=== PATIENT | male | born 1975 | race Caucasian/White ===

== ENCOUNTER 2017-04-15 16:45 | Inpatient (IN) | payer BC ==
[~2017-04-15] VITALS: Ht 172.7 cm; Wt 100.0 kg
[2017-04-15 16:46] VITALS: BP 122/89; PULSE 143; RESP 20; TEMP 102.4; O2SAT 96
--- NOTE | 2017-04-15 17:19 | PD ---
Physical Exam Date Seen by Provider: Apr 15, 2017 Time Seen by Provider: 17:16 Narrative 42-year-old white male presents to emergency department with complaints of right lower quadrant pain 2 days. Patient has had a fever, chills, episodes of nausea but no vomiting. Is a decrease in appetite. States the pain is a 8-9 /10. No alleviating factors. Vital signs reviewed. Pt waiting for bed placement. Data Data Last Documented VS Vital Signs Date Time Temp Pulse Resp B/P (MAP) Pulse Ox O2 Delivery O2 Flow Rate FiO2 04/15/17 16:46 102.4 143 20 122/89 (100) 96 Room Air [facility] Medical Record Reviewed: No Supervised Visit with LARA: Milton Medina Apr 15, 2017 17:19
--- NOTE | 2017-04-15 17:19 | PD ---
Physical Exam Date Seen by Provider: Apr 15, 2017 Time Seen by Provider: 17:16 Narrative 42-year-old white male presents to emergency department with complaints of right lower quadrant pain 2 days. Patient has had a fever, chills, episodes of nausea but no vomiting. Is a decrease in appetite. States the pain is a 8-9 /10. No alleviating factors. Vital signs reviewed. Pt waiting for bed placement. Data Data Last Documented VS Vital Signs Date Time Temp Pulse Resp B/P (MAP) Pulse Ox O2 Delivery O2 Flow Rate FiO2 04/15/17 16:46 102.4 143 20 122/89 (100) 96 Room Air [facility] Medical Record Reviewed: No Supervised Visit with LARA: Milton Medina Apr 15, 2017 17:19
--- NOTE | 2017-04-15 17:19 | PD ---
Physical Exam Date Seen by Provider: Apr 15, 2017 Time Seen by Provider: 17:16 Narrative 42-year-old white male presents to emergency department with complaints of right lower quadrant pain 2 days. Patient has had a fever, chills, episodes of nausea but no vomiting. Is a decrease in appetite. States the pain is a 8-9 /10. No alleviating factors. Vital signs reviewed. Pt waiting for bed placement. Data Data Last Documented VS Vital Signs Date Time Temp Pulse Resp B/P (MAP) Pulse Ox O2 Delivery O2 Flow Rate FiO2 04/15/17 16:46 102.4 143 20 122/89 (100) 96 Room Air [facility] Medical Record Reviewed: No Supervised Visit with LARA: Milton Medina Apr 15, 2017 17:19
[2017-04-15] MEDS ORDERED: SODIUM CHLOR 0.9% 1000 ML INJ 1,000 ML IV ONE ×4 (17:30→19:00)
[2017-04-15] MEDS ORDERED: ONDANSETRON HCL 4 MG/2 ML VIAL IV PUSH ONE (17:30)
[2017-04-15 17:43] LABS: AUTOMATED NEUTROPHIL # 18.9 TH/MM3 (1.8-7.7); BASOPHIL % 0.2 % (0.0-2.0); HEMATOCRIT 47.2 % (39.0-51.0); LYMPH % 5.9 % (9.0-44.0); LYMPHOCYTE # 1.2 TH/MM3 (1.0-4.8); MEAN CELL VOLUME 96.9 FL (80.0-100.0); MEAN CORPUSCULAR HEMOGLOBIN 32.9 PG (27.0-34.0); MEAN CORPUSCULAR HGB CONC 33.9 % (32.0-36.0); MEAN PLATELET VOLUME 9.3 FL (7.0-11.0); MONO % 4.4 % (0.0-8.0); MONOCYTE # 0.9 TH/MM3 (0-0.9); NEUT % 89.5 % (16.0-70.0); PLATELET COUNT 265 TH/MM3 (150-450); RED BLOOD COUNT 4.87 MIL/MM3 (4.50-5.90); RED CELL DISTRIBUTION WIDTH 13.2 % (11.6-17.2); WHITE BLOOD COUNT 21.1 TH/MM3 (4.0-11.0)
[2017-04-15 17:51] LABS: BACTERIA, URINE RARE /hpf; BILIRUBIN, URINE NEG (NEG); BLOOD, URINE SMALL (NEG); GLUCOSE,URINE TRACE mg/dL (NEG); HYALINE CAST, URINE 71 /lpf (RARE); KETONE, URINE TRACE mg/dL (NEG); MUCUS URINE MANY /lpf (OCC); NITRITE,URINE NEG (NEG); URINE COLOR YELLOW (YELLW/STRAW); URINE LEUKOCYTE ESTERASE NEG (NEG)
[2017-04-15 17:53] LABS: INTERNATIONAL NORMALIZED RATIO 1.2 RATIO; PROTHROMBIN TIME - PATIENT 13.9 SEC (9.8-11.6)
[2017-04-15] MEDS ORDERED: MORPHINE SULFATE 4 MG/ML INJ IV PUSH ONE (18:00)
[2017-04-15 18:10] LABS: ALBUMIN 3.8 GM/DL (3.4-5.0); AST (GOT) 17 U/L (15-37); BICARBONATE 25.1 MEQ/L (21.0-32.0); BLOOD UREA NITROGEN 15 MG/DL (7-18); CALCIUM 9.4 MG/DL (8.5-10.1); CHLORIDE 95 MEQ/L (98-107); CREATININE 1.87 MG/DL (0.60-1.30); GLOMERULAR FILTRATION RATE 40 ML/MIN (>89); GLUCOSE,RANDOM 160 MG/DL (74-106); SODIUM (NA) 130 MEQ/L (136-145)
[2017-04-15 18:11] LABS: ALT (GPT) 32 U/L (12-78)
[2017-04-15 18:13] LABS: ALKALINE PHOSPHATASE 56 U/L (45-117); TOTAL BILIRUBIN ADULT 1.8 MG/DL (0.2-1.0); TOTAL PROTEIN 8.4 GM/DL (6.4-8.2)
[2017-04-15] MEDS ORDERED: ACETAMINOPHEN 1000 MG/100 ML 100 ML IV ONE (18:15)
[2017-04-15] MEDS ORDERED: PIPERACIL-TAZO 3.375 GM PREMIX 50 ML IV ONE (18:15)
--- NOTE | 2017-04-15 18:25 | PD ---
HPI Chief Complaint: Abdominal Pain Time Seen by Provider: 17:29 Travel History International Travel<30 days: No Contact w/Intl Traveler<30days: No Traveled to known affect area: No History of Present Illness HPI 42-year-old man presents to the emergency department complaining of right lower quadrant abdominal pain associated with fevers, nausea, feeling poorly. Symptoms have been ongoing for the past 2 days or so. No history of previous similar symptoms. He had a hernia when he was a baby but has not had any recurrent symptoms. Decreased appetite. Some right lower quadrant tenderness. No other complaints. History Past Medical History Medical History: Denies Significant Hx Social History Tobacco Use: No Allergies-Medications (Allergen,Severity, Reaction): Coded Allergies: No Known Allergies (Unverified , 04/15/17) Review of Systems Except as stated in HPI: all other systems reviewed are Neg Physical Exam Narrative GENERAL: 42-year-old man, no acute distress. SKIN: Focused skin assessment warm/dry. NECK: Trachea midline. No JVD. CARDIOVASCULAR: Regular rate and rhythm. No murmur appreciated. RESPIRATORY: No accessory muscle use. Clear to auscultation. Breath sounds equal bilaterally. GASTROINTESTINAL: Abdomen is obese and soft. Moderate right lower quadrant tenderness with some voluntary guarding. MUSCULOSKELETAL: No obvious deformities. No clubbing. No cyanosis. No edema. NEUROLOGICAL: Awake and alert. No obvious cranial nerve deficits. Motor grossly within normal limits. Normal speech. PSYCHIATRIC: Appropriate mood and affect; insight and judgment normal. Data Data Last Documented VS Vital Signs Date Time Temp Pulse Resp B/P (MAP) Pulse Ox O2 Delivery O2 Flow Rate FiO2 04/15/17 18:55 18 04/15/17 16:46 102.4 143 122/89 (100) 96 Room Air Orders Orders Complete Blood Count With Diff (04/15/17 17:19) Comprehensive Metabolic Panel (04/15/17 17:19) Prothrombin Time / Inr (Pt) (04/15/17 17:19) Act Partial Throm Time (Ptt) (04/15/17 17:19) Ua Includes Microscopic (04/15/17 17:19) Iv Access Insert/Monitor (04/15/17 17:19) Ct Abd/Pel W Iv Contrast(Rout) (04/15/17 17:19) Sodium Chlor 0.9% 1000 Ml Inj (Ns 1000 M (04/15/17 17:30) Ondansetron Inj (Zofran Inj) (04/15/17 17:30) Morphine Inj (Morphine Inj) (04/15/17 18:00) Piperacil-Tazo 3.375 Gm Premix (Zosyn 3. (04/15/17 18:15) Sodium Chlor 0.9% 1000 Ml Inj (Ns 1000 M (04/15/17 18:15) Acetaminophen 1000 Mg/100 Ml (Ofirmev 10 (04/15/17 18:15) Sodium Chlor 0.9% 1000 Ml Inj (Ns 1000 M (04/15/17 18:30) Iodixanol 320 Inj (Rad Ct) (Visipaque 32 (04/15/17 18:29) Sodium Chlor 0.9% 1000 Ml Inj (Ns 1000 M (04/15/17 19:00) Admit Order (Ed Use Only) (04/15/17 ) Labs Laboratory Tests Test 04/15/17 17:24 04/15/17 17:25 Urine Color YELLOW Urine Turbidity HAZY Urine pH 6.0 Urine Specific [place] 1.024 Urine Protein 100 mg/dL Urine Glucose (UA) TRACE mg/dL Urine Ketones TRACE mg/dL Urine Occult Blood SMALL Urine Nitrite NEG Urine Bilirubin NEG Urine Urobilinogen 2.0 MG/DL Urine Leukocyte Esterase NEG Urine RBC 2 /hpf Urine WBC 6 /hpf Urine Bacteria RARE /hpf Urine Hyaline Casts 71 /lpf Urine Mucus MANY /lpf White Blood Count 21.1 TH/MM3 Red Blood Count 4.87 MIL/MM3 Hemoglobin 16.0 GM/DL Hematocrit 47.2 % Mean Corpuscular Volume 96.9 FL Mean Corpuscular Hemoglobin 32.9 PG Mean Corpuscular Hemoglobin Concent 33.9 % Red Cell Distribution Width 13.2 % Platelet Count 265 TH/MM3 Mean Platelet Volume 9.3 FL Neutrophils (%) (Auto) 89.5 % Lymphocytes (%) (Auto) 5.9 % Monocytes (%) (Auto) 4.4 % Eosinophils (%) (Auto) 0.0 % Basophils (%) (Auto) 0.2 % Neutrophils # (Auto) 18.9 TH/MM3 Lymphocytes # (Auto) 1.2 TH/MM3 Monocytes # (Auto) 0.9 TH/MM3 Eosinophils # (Auto) 0.0 TH/MM3 Basophils # (Auto) 0.0 TH/MM3 CBC Comment DIFF FINAL Differential Comment Prothrombin Time 13.9 SEC Prothromb Time International Ratio 1.2 RATIO Activated Partial Thromboplast Time 29.4 SEC Blood Urea Nitrogen 15 MG/DL Creatinine 1.87 MG/DL Random Glucose 160 MG/DL Total Protein 8.4 GM/DL Albumin 3.8 GM/DL Calcium Level 9.4 MG/DL Alkaline Phosphatase 56 U/L Aspartate Amino Transf (AST/SGOT) 17 U/L Alanine Aminotransferase (ALT/SGPT) 32 U/L Total Bilirubin 1.8 MG/DL Sodium Level 130 MEQ/L Potassium Level 4.0 MEQ/L Chloride Level 95 MEQ/L Carbon Dioxide Level 25.1 MEQ/L Anion Gap 10 MEQ/L Estimat Glomerular Filtration Rate 40 ML/MIN [facility] Medical Decision Making Medical Screen Exam Complete: Yes Emergency Medical Condition: Yes Interpretation(s) LABS: CBC remarkable for white count 21,000 CMP remarkable for mildly elevated creatinine, 1.7, total bili 1.8 INR 1.2 UA with trace pyuria Differential Diagnosis Sepsis, appendicitis, perforated appendicitis, terminal ileitis, colitis, hepatobiliary disease, renal lithiasis, UTI, other Narrative Course medical decision making INITIAL: This is a 42-year-old man who presents to the emergency department complaining of right lower quadrant abdominal pain associated with fever and tenderness suggestive of acute appendicitis. Patient is tachycardic with high fever suggestive of sepsis. We'll give IV fluids, antiemetics, pain medicine, empiric IV antibiotics. We'll check labs, CT. Creatinine told that one creatinine told elevated. I think the risks of IV contrast for patient with sepsis and likely abdominal etiology outweighs risk of renal injury in this patient. Aggressive IV hydration is ordered as well. FINAL: Perforated appendicitis. Spoke with Dr. Diaz, will take patient to the OR. Diagnosis Primary Impression: Perforated appendicitis Additional Impression: Sepsis Admitting Information Admitting Physician Requests: Admit Boby Cantu MD Apr 15, 2017 18:25
[2017-04-15] MEDS ORDERED: IODIXANOL 320 MG/ML 10 ML VIAL (for Rad CT) IVCONTRAST ONE (18:29)
--- NOTE | 2017-04-15 18:48 | RADRPT ---
EXAM DATE/TIME: 04/15/2017 18:19 [place] COMPARISON: No previous studies available for comparison. INDICATIONS : Right lower quadrant pain, fever, nausea. IV CONTRAST: 50 cc Visipaque (iodixanol) IV ORAL CONTRAST: No oral contrast ingested. RADIATION DOSE: 16.32 CTDIvol (mGy) MEDICAL HISTORY : None SURGICAL HISTORY : None. ENCOUNTER: Initial ACUITY: 2 days PAIN SCALE: 8/10 LOCATION: Right lower quadrant TECHNIQUE: Volumetric scanning of the abdomen and pelvis was performed. Using automated exposure control and ad justment of the mA and/or kV according to patient size, radiation dose was kept as low as reasonably achievable to obtain optimal diagnostic quality images. DICOM format image data is available electro nically for review and comparison. FINDINGS: LOWER LUNGS: The visualized lower lungs are clear. LIVER: Homogeneous density without lesion. There is no dilation of the biliary tree. No calcified gallston es. SPLEEN: Normal size without lesion. PANCREAS: Within normal limits. KIDNEYS: Normal in size and shape. There is no mass, stone or hydronephrosis. ADRENAL GLANDS: Within normal limits. VASCULAR: There is no aortic aneurysm. BOWEL/MESENTERY: There is evidence of a ruptured appendicitis with abnormal tubular structure in the right lower quadr ant with surrounding inflammatory change. There is a small appendicolith in the base near the cecum b est seen on axial image #71. There is surrounding inflammatory change in the mesentery with several s mall collections of free air. There is a small amount of fluid in the pelvis. There is an abnormal yessica wel gas pattern with multiple loops of borderline dilated air-containing small bowel with air-fluid l evels in the central and left side of the abdomen. Air-fluid levels and mild gaseous dilatation are a lso present in portions of the colon. ABDOMINAL WALL: Within normal limits. RETROPERITONEUM: There is no lymphadenopathy. BLADDER: No wall thickening or mass. REPRODUCTIVE: Within normal limits. INGUINAL: There is no lymphadenopathy or hernia. MUSCULOSKELETAL: Within normal limits for patient age. CONCLUSION: 1. Ruptured appendicitis with small amount of free air and fluid. 2. Abnormal bowel gas pattern likely representing an ileus. Matt Vuong MD on April 15, 2017 at 18:43 Board Certified Radiologist. This report was verified electronically.
[2017-04-15 19:38] VITALS: BP 129/75; PULSE 115; RESP 16; TEMP 102.9; O2SAT 94
[2017-04-15] MEDS ORDERED: ACETAMINOPHEN 1000 MG/100 ML 0 ML IV ONE (19:52)
[2017-04-15] MEDS ORDERED: BUPIVACAINE/EPINEPHRINE 0.5% 50 ML VIAL ONE (19:59)
[2017-04-15] MEDS ORDERED: metroNIDAZOLE 500 MG INJ 100 ML IV ONE (20:32)
[2017-04-15] MEDS ORDERED: diphenhydrAMINE HCL 50 MG/ML VIAL IVP PRN (21:30)
[2017-04-15] MEDS ORDERED: Post-op Orders (for Pharmacy) MISC XX ONE (21:30)
[2017-04-15] MEDS ORDERED: ONDANSETRON HCL 4 MG/2 ML VIAL IV PUSH PRN (21:30)
[2017-04-15] MEDS ORDERED: NALOXONE HCL 0.4 MG/ML AMP IV PUSH PRN (21:30)
[2017-04-15] MEDS ORDERED: ACETAMINOPHEN 1000 MG/100 ML 100 ML IV SCH (21:30)
[2017-04-15] MEDS ORDERED: DO NOT ADM ANY ANTICOAGULANT DRUGS PRN (21:30)
[2017-04-15] MEDS ORDERED: SODIUM CHLORIDE 0.9% FLUSH 5 ML FLUSH IVF PRN (21:30)
[2017-04-15] MEDS ORDERED: MORPHINE SULFATE 4 MG/ML INJ IV PUSH PRN (21:30)
[2017-04-15] MEDS ORDERED: MORPHINE SULFATE 8 MG/ML INJ IV PUSH PRN (21:30)
[2017-04-15] MEDS ORDERED: PCA - TOTAL MG MORPHINE DELIVERED PER SHIFT SCH (22:00)
[2017-04-15] MEDS: LACTATED RINGER'S 1000 ML INJ 1,000 ML IV SCH (22:00)
[2017-04-15] MEDS ORDERED: LACTATED RINGER'S 1000 ML INJ 1,000 ML IV SCH ×2 (22:05→23:00)
[2017-04-15] MEDS: CIPROFLOXACIN 400 MG PREMIX 200 ML IV SCH (22:10)
[2017-04-15 23:51] VITALS: BP 120/64; PULSE 102; RESP 17; TEMP 98.6; O2SAT 93
--- NOTE | 2017-04-15 23:59 | MH ---
cc: MARCO ANTONIO DIAZ M.D. DATE OF ADMISSION: 04/15/2017 REASON FOR ADMISSION Perforated appendicitis HISTORY OF PRESENT ILLNESS The patient is a 42 year-old male who has been hurting since Friday and has right lower quadrant pain with fevers and a high fever to 104 this morning. The patient has not had no similar symptoms previously. He denies vomiting. Last bowel movement was today. ALLERGIES: He has no known allergies. REVIEW OF SYSTEMS: Review of systems are negative except as indicated above. PHYSICAL EXAMINATION: The physical exam reveals an ill-appearing male who is quite uncomfortable. Vital signs: BP 129/75, pulse 115, respirations 16, temperature 102.9, 94% saturation on room air. HEENT: Sclerae anicteric. Chest: Clear to auscultation. Cardiac exam: Reveals tachycardia without murmurs. Abdomen is soft but diffusely tender. Pulses are present. Neurologic: Exam is nonfocal. LABORATORY VALUES: Laboratory values demonstrate WBC of 21.1 with 89% neutrophils. BUN and creatinine are 15 and 1.87, glucose is 160. IMAGING STUDIES: Imaging demonstrates evidence of ruptured appendicitis with an abnormal tubular structure in the right lower quadrant with surrounding free air and fluid. There is an abnormal bowel gas pattern likely representing an ileus. ASSESSMENT Perforated appendicitis with free air and fluid. PLAN The patient has been given fluid bolus by Dr. Cantu and has received antibiotics. He will be taken to the operating room immediately. Discussed risks of surgery with the patient and his including but not limited to bleeding, high risk of infection with abscess formation requiring drainage, even with drains placed intraoperatively, adhesion formation, and high risk of ileus with prolonged hospitalization. I have also discussed increased risk of leakage with fistula formation as well as the possibility of the patient requiring bowel resection of the ileocecal area. I have discussed remedies, consequences, alternatives, and convalescence; they vocalized understand and agree to proceed. Marco Antonio Diaz MD [facility]/ABELARDO /11:28 PM /11:51 PM
--- NOTE | 2017-04-16 00:25 | MP ---
cc: MARCO ANTONIO IDAZ M.D. DATE OF SURGERY: 04/15/2017 PROCEDURE Laparoscopic appendectomy. Primary repair of umbilical hernia. PREOPERATIVE DIAGNOSIS Perforated appendicitis POSTOPERATIVE DIAGNOSIS Perforated appendicitis Incarcerated umbilical hernia. ANESTHESIA: General endotracheal anesthesia SURGEON Lanie Diaz MD. ESTIMATED BLOOD LOSS: 20 mL FLUIDS: 1200 mL Crystalloid COMPLICATIONS None. DRAINS: MILANA x1 SPECIMEN Appendix to pathology. FINDINGS Perforated appendicitis, preperitoneal fat in an umbilical hernia. PROCEDURE IN DETAIL The patient was taken to the operating room and placed on the operating table in the supine position. After an adequate level of general endotracheal anesthesia was achieved the abdomen was prepped and draped in usual fashion. Time-out was taken confirming the correct patient, site, and procedure to be performed. Skin and subcutaneous tissue was infiltrated with local anesthetic. An incision made in the umbilicus and carried through the fascia sharply. The preperitoneal fat comprising the hernia was reduced into the abdominal cavity. A 12 mm balloon trocar was inserted and the balloon inflated. The abdomen was insufflated. A 5 mm 30 degrees laparoscope was inserted. The patient was found to have purulent material in the abdomen and inflammatory process around multiple loops of small bowel. A 5-mm trocar was placed in the right lower quadrant and entered the abdominal cavity under direct vision uneventfully. Instrument was used to sweep loops of bowel down off of the anterior abdominal wall and an infraumbilical midline trocar was able to be placed under direct vision uneventfully as well. Following this loops of bowel were freed up and suction and irrigation was used to remove purulent material from the abdominal cavity and the pelvis. When this had been completed the appendix was identified and a perforation was seen about three-quarters of the way toward the base of the appendix. The mesoappendix was then divided and a 0-PDS Endoloop slipped around the appendix and placed at the base proximal to the perforation site. The appendix was then divided approximately 1 cm distal to the loop and this specimen placed into an EndoCatch device. While observing via the right lower quadrant trocar site, the appendix was removed via the umbilical port and passed off the table. The abdomen then was copiously irrigated and a 10-Tamazight Daniel drain was brought out via the right lower quadrant trocar site. The drain was placed into the pelvis and with the more proximal part of the drain near the appendiceal stump. The appendiceal stump and mesoappendix were reexamined and found to be clean and dry. After aspirating as much irrigation as possible the drain was fixed to the skin with a 3-0 nylon suture. Insufflation was discontinued and the umbilical port was removed. The fascia was closed in the umbilicus with 0 Vicryl suture in an interrupted fashion. Care was taken to close the hernia defect. The remaining local anesthetic was injected into the trocar sites and the skin closed at the infraumbilical trocar site and the umbilicus with 4-0 Vicryl in an interrupted buried fashion. Both of these sites were dressed with Steri-Strips and a 4x4 applied around the drain. The patient was extubated and taken back to the recovery room in stable condition. He tolerated the procedure well. MD KEON Llanes/ABELARDO /11:32 PM /12:17 AM
[2017-04-16] MEDS: ACETAMINOPHEN 1000 MG/100 ML 100 ML IV SCH ×4 (00:28→18:16)
[2017-04-16] MEDS: LACTATED RINGER'S 1000 ML INJ 1,000 ML IV SCH ×3 (03:42→13:56)
[2017-04-16] MEDS: metroNIDAZOLE 500 MG INJ 100 ML IV SCH ×4 (03:42→21:09)
[2017-04-16 04:30] VITALS: BP 107/66; PULSE 77; RESP 18; TEMP 96.5; O2SAT 96
[2017-04-16 08:00] VITALS: BP 114/70; PULSE 84; RESP 20; TEMP 97.8; O2SAT 97
[2017-04-16 08:18] LABS: AUTOMATED NEUTROPHIL # 10.3 TH/MM3 (1.8-7.7); BASOPHIL % 0.1 % (0.0-2.0); HEMOGLOBIN 13.2 GM/DL (13.0-17.0); LYMPH % 7.7 % (9.0-44.0); LYMPHOCYTE # 0.9 TH/MM3 (1.0-4.8); MEAN CELL VOLUME 98.6 FL (80.0-100.0); MEAN CORPUSCULAR HEMOGLOBIN 33.4 PG (27.0-34.0); MEAN CORPUSCULAR HGB CONC 33.9 % (32.0-36.0); MEAN PLATELET VOLUME 9.7 FL (7.0-11.0); MONO % 5.4 % (0.0-8.0); MONOCYTE # 0.6 TH/MM3 (0-0.9); NEUT % 86.8 % (16.0-70.0); PLATELET COUNT 155 TH/MM3 (150-450); RED BLOOD COUNT 3.96 MIL/MM3 (4.50-5.90); RED CELL DISTRIBUTION WIDTH 13.1 % (11.6-17.2); WHITE BLOOD COUNT 11.9 TH/MM3 (4.0-11.0)
[2017-04-16 08:24] VITALS: O2SAT 92
[2017-04-16 08:51] LABS: CALCIUM 8.3 MG/DL (8.5-10.1); CREATININE 1.16 MG/DL (0.60-1.30)
[2017-04-16] MEDS: SODIUM CHLORIDE 0.9% FLUSH 5 ML FLUSH IVF SCH ×2 (09:00→21:00)
[2017-04-16] MEDS: CIPROFLOXACIN 400 MG PREMIX 200 ML IV SCH ×2 (09:06→21:09)
--- NOTE | 2017-04-16 11:55 | HHI.PR ---
Subjective Subjective Notes Up to chair Complains of just mild pain at incisions site PATTIE Peck at bedside Objective Vitals/I&O Vital Signs Date Time Temp Pulse Resp B/P (MAP) Pulse Ox O2 Delivery O2 Flow Rate FiO2 04/16/17 08:24 92 21 04/16/17 08:00 97.8 84 20 114/70 (85) 04/15/17 22:30 Nasal Cannula 3 Labs Laboratory Tests Test 04/15/17 17:24 04/15/17 17:25 04/16/17 07:41 Urine Color YELLOW Urine Turbidity HAZY Urine pH 6.0 Urine Specific [place] 1.024 Urine Protein 100 Urine Glucose (UA) TRACE Urine Ketones TRACE Urine Occult Blood SMALL Urine Nitrite NEG Urine Bilirubin NEG Urine Urobilinogen 2.0 Urine Leukocyte Esterase NEG Urine RBC 2 Urine WBC 6 Urine Bacteria RARE Urine Hyaline Casts 71 Urine Mucus MANY White Blood Count 21.1 11.9 Red Blood Count 4.87 3.96 Hemoglobin 16.0 13.2 Hematocrit 47.2 39.0 Mean Corpuscular Volume 96.9 98.6 Mean Corpuscular Hemoglobin 32.9 33.4 Mean Corpuscular Hemoglobin Concent 33.9 33.9 Red Cell Distribution Width 13.2 13.1 Platelet Count 265 155 Mean Platelet Volume 9.3 9.7 Neutrophils (%) (Auto) 89.5 86.8 Lymphocytes (%) (Auto) 5.9 7.7 Monocytes (%) (Auto) 4.4 5.4 Eosinophils (%) (Auto) 0.0 0.0 Basophils (%) (Auto) 0.2 0.1 Neutrophils # (Auto) 18.9 10.3 Lymphocytes # (Auto) 1.2 0.9 Monocytes # (Auto) 0.9 0.6 Eosinophils # (Auto) 0.0 0.0 Basophils # (Auto) 0.0 0.0 CBC Comment DIFF FINAL DIFF FINAL Differential Comment Prothrombin Time 13.9 Prothromb Time International Ratio 1.2 Activated Partial Thromboplast Time 29.4 Blood Urea Nitrogen 15 14 Creatinine 1.87 1.16 Random Glucose 160 133 Total Protein 8.4 Albumin 3.8 Calcium Level 9.4 8.3 Alkaline Phosphatase 56 Aspartate Amino Transf (AST/SGOT) 17 Alanine Aminotransferase (ALT/SGPT) 32 Total Bilirubin 1.8 Sodium Level 130 138 Potassium Level 4.0 4.4 Chloride Level 95 104 Carbon Dioxide Level 25.1 26.0 Anion Gap 10 8 Estimat Glomerular Filtration Rate 40 69 Cardiovascular: Regular Lungs: Clear Abdomen: Other (distended; lap sites c/d/i; MILANA with thick with minimal pus ) Extremities: No edema A/P Assessment and Plan 42 year old male POD1 lap appy; perforated -Continue IVF -Continue IV antibiotics -Okay for ice chips -Patient at high risk for post op ileus -OOB and mobilize as tolerated -Pain control Attending Note - Dr. Diaz Feels better Steristrips dry MILANA output cloudy The exam, history, and the medical decision-making described in the above note were completed with the assistance of the mid-level provider. I reviewed and agree with the findings presented. I attest that I had a [id number] encounter with the patient on the same day, and personally performed and documented my assessment and findings in the medical record. Chula Sloan Apr 16, 2017 11:55 Matt Diaz MD Apr 17, 2017 21:39
[2017-04-16 12:00] VITALS: BP 105/65; PULSE 86; RESP 20; TEMP 97.9; O2SAT 96
[2017-04-16] MEDS: PANTOPRAZOLE SODIUM 40 MG VIAL IV PUSH SCH (14:56)
[2017-04-16 16:00] VITALS: BP 104/67; PULSE 79; RESP 20; TEMP 96.9; O2SAT 96
[2017-04-16 20:23] VITALS: BP 122/66; PULSE 80; RESP 18; TEMP 99.2; O2SAT 96
[2017-04-16] MEDS: ENOXAPARIN SODIUM 40 MG/0.4 ML SYRINGE SQ SCH (21:09)
[2017-04-17] VITALS (8 sets, daily range): BP systolic 116–141; BP diastolic 72–88; PULSE 88–103; RESP 16–20; TEMP 98.4–99.9; O2SAT 93–99
[2017-04-17] MEDS: LACTATED RINGER'S 1000 ML INJ 1,000 ML IV SCH ×4 (00:09→18:55)
[2017-04-17] MEDS: metroNIDAZOLE 500 MG INJ 100 ML IV SCH ×4 (04:00→22:28)
[2017-04-17] MEDS: ACETAMINOPHEN 1000 MG/100 ML 100 ML IV SCH ×5 (06:00→17:05)
[2017-04-17 08:05] LABS: AUTOMATED NEUTROPHIL # 10.3 TH/MM3 (1.8-7.7); BASOPHIL % 0.1 % (0.0-2.0); EOSINOPHIL % 0.3 % (0.0-4.0); HEMATOCRIT 38.9 % (39.0-51.0); HEMOGLOBIN 13.2 GM/DL (13.0-17.0); LYMPH % 6.8 % (9.0-44.0); LYMPHOCYTE # 0.8 TH/MM3 (1.0-4.8); MEAN CELL VOLUME 97.7 FL (80.0-100.0); MEAN CORPUSCULAR HEMOGLOBIN 33.1 PG (27.0-34.0); MEAN CORPUSCULAR HGB CONC 33.9 % (32.0-36.0); MEAN PLATELET VOLUME 9.6 FL (7.0-11.0); MONO % 4.6 % (0.0-8.0); MONOCYTE # 0.5 TH/MM3 (0-0.9); NEUT % 88.2 % (16.0-70.0); PLATELET COUNT 177 TH/MM3 (150-450); RED BLOOD COUNT 3.98 MIL/MM3 (4.50-5.90); WHITE BLOOD COUNT 11.7 TH/MM3 (4.0-11.0)
[2017-04-17 08:39] LABS: BICARBONATE 25.2 MEQ/L (21.0-32.0); CALCIUM 8.3 MG/DL (8.5-10.1); CREATININE 0.93 MG/DL (0.60-1.30)
[2017-04-17] MEDS: CIPROFLOXACIN 400 MG PREMIX 200 ML IV SCH ×2 (09:31→22:28)
[2017-04-17] MEDS: SODIUM CHLORIDE 0.9% FLUSH 5 ML FLUSH IVF SCH ×2 (09:31→21:00)
--- NOTE | 2017-04-17 13:17 | HHI.PR ---
Subjective Subjective Notes Resting in bed Feeling slightly bloated today Just sipping on water Objective Vitals/I&O Vital Signs Date Time Temp Pulse Resp B/P (MAP) Pulse Ox O2 Delivery O2 Flow Rate FiO2 04/17/17 11:58 98.4 96 16 129/79 (96) 97 04/16/17 08:24 21 04/15/17 22:30 Nasal Cannula 3 Labs Laboratory Tests Test 04/17/17 07:17 White Blood Count 11.7 Red Blood Count 3.98 Hemoglobin 13.2 Hematocrit 38.9 Mean Corpuscular Volume 97.7 Mean Corpuscular Hemoglobin 33.1 Mean Corpuscular Hemoglobin Concent 33.9 Red Cell Distribution Width 13.0 Platelet Count 177 Mean Platelet Volume 9.6 Neutrophils (%) (Auto) 88.2 Lymphocytes (%) (Auto) 6.8 Monocytes (%) (Auto) 4.6 Eosinophils (%) (Auto) 0.3 Basophils (%) (Auto) 0.1 Neutrophils # (Auto) 10.3 Lymphocytes # (Auto) 0.8 Monocytes # (Auto) 0.5 Eosinophils # (Auto) 0.0 Basophils # (Auto) 0.0 CBC Comment DIFF FINAL Differential Comment Blood Urea Nitrogen 15 Creatinine 0.93 Random Glucose 96 Calcium Level 8.3 Sodium Level 138 Potassium Level 3.8 Chloride Level 102 Carbon Dioxide Level 25.2 Anion Gap 11 Estimat Glomerular Filtration Rate 89 Cardiovascular: Regular Lungs: Clear Abdomen: Other (lap sites c/d/i; abdomen moderately distended; MILANA with thick pus drainage ) Extremities: No edema A/P Assessment and Plan 42 year old male POD2 lap appy; perforated -Continue IVF -Continue IV antibiotics -Okay for clear liquids although I did just encourage sips at this point -Patient at high risk for post op ileus -OOB and mobilize as tolerated -Pain control Attending Note - Dr. Diaz Slightly bloated still MILANA output serosanguinous, still slightly cloudy Clear liquids Continue IV antibiotics At risk for ileus. The exam, history, and the medical decision-making described in the above note were completed with the assistance of the mid-level provider. I reviewed and agree with the findings presented. I attest that I had a [id number] encounter with the patient on the same day, and personally performed and documented my assessment and findings in the medical record. Chula Sloan Apr 17, 2017 13:17 Matt Diaz MD Apr 17, 2017 21:38
--- NOTE | 2017-04-17 16:43 | HHI.FF ---
Face to Face Verification Diagnosis: (1) Perforated appendicitis Home Health Nursing Order: Wound care and dressing changes Instructions: Routine MILANA care I have seen patient Dino Dougherty on 04/17/17. My clinical findings support the need for the requested home health care services because: Ltd mobility - disease progression I certify that my clinical findings support that this patient is homebound because: Post-op weakness Chula Sloan [facility] Apr 17, 2017 16:43
--- NOTE | 2017-04-17 16:43 | HHI.FF ---
Face to Face Verification Diagnosis: (1) Perforated appendicitis Home Health Nursing Order: Wound care and dressing changes Instructions: Routine MILANA care I have seen patient Dino Dougherty on 04/17/17. My clinical findings support the need for the requested home health care services because: Ltd mobility - disease progression I certify that my clinical findings support that this patient is homebound because: Post-op weakness Chula Sloan [facility] Apr 17, 2017 16:43
--- NOTE | 2017-04-17 16:43 | HHI.FF ---
Face to Face Verification Diagnosis: (1) Perforated appendicitis Home Health Nursing Order: Wound care and dressing changes Instructions: Routine MILANA care I have seen patient Dino Dougherty on 04/17/17. My clinical findings support the need for the requested home health care services because: Ltd mobility - disease progression I certify that my clinical findings support that this patient is homebound because: Post-op weakness Chula Sloan [facility] Apr 17, 2017 16:43
[2017-04-17] MEDS: PANTOPRAZOLE SODIUM 40 MG VIAL IV PUSH SCH (17:04)
[2017-04-17] MEDS: ENOXAPARIN SODIUM 40 MG/0.4 ML SYRINGE SQ SCH (22:29)
[2017-04-18] MEDS: ACETAMINOPHEN 1000 MG/100 ML 100 ML IV SCH (03:48)
[2017-04-18] MEDS: metroNIDAZOLE 500 MG INJ 100 ML IV SCH ×4 (03:50→21:17)
[2017-04-18 07:23] LABS: AUTOMATED NEUTROPHIL # 7.8 TH/MM3 (1.8-7.7); BASOPHIL % 0.3 % (0.0-2.0); EOSINOPHIL # 0.1 TH/MM3 (0-0.4); EOSINOPHIL % 1.4 % (0.0-4.0); HEMOGLOBIN 12.4 GM/DL (13.0-17.0); LYMPH % 11.8 % (9.0-44.0); LYMPHOCYTE # 1.2 TH/MM3 (1.0-4.8); MEAN CELL VOLUME 97.5 FL (80.0-100.0); MEAN CORPUSCULAR HEMOGLOBIN 33.5 PG (27.0-34.0); MEAN CORPUSCULAR HGB CONC 34.4 % (32.0-36.0); MEAN PLATELET VOLUME 9.1 FL (7.0-11.0); MONO % 6.6 % (0.0-8.0); MONOCYTE # 0.6 TH/MM3 (0-0.9); NEUT % 79.9 % (16.0-70.0); PLATELET COUNT 204 TH/MM3 (150-450); RED BLOOD COUNT 3.69 MIL/MM3 (4.50-5.90); WHITE BLOOD COUNT 9.7 TH/MM3 (4.0-11.0)
[2017-04-18 07:37] LABS: BICARBONATE 27.1 MEQ/L (21.0-32.0); CREATININE 0.85 MG/DL (0.60-1.30)
[2017-04-18 08:00] VITALS: BP 134/84; PULSE 89; RESP 17; TEMP 97.2; O2SAT 93
[2017-04-18] MEDS: CIPROFLOXACIN 400 MG PREMIX 200 ML IV SCH ×2 (09:23→22:43)
[2017-04-18] MEDS: SODIUM CHLORIDE 0.9% FLUSH 5 ML FLUSH IVF SCH ×2 (09:23→21:00)
[2017-04-18] MEDS: LACTATED RINGER'S 1000 ML INJ 1,000 ML IV SCH ×2 (09:28→15:54)
[2017-04-18 09:33] VITALS: O2SAT 97
[2017-04-18 12:00] VITALS: BP 124/82; PULSE 86; RESP 18; TEMP 98.7; O2SAT 95
[2017-04-18] MEDS ORDERED: METR-1 PO (13:16)
[2017-04-18] MEDS ORDERED: CIPR-9 PO (13:16)
--- NOTE | 2017-04-18 13:42 | HHI.PR ---
Subjective Subjective Notes Up to chair Sipping on chicken broth Not feeling ready to increase diet at this time Objective Vitals/I&O Vital Signs Date Time Temp Pulse Resp B/P (MAP) Pulse Ox O2 Delivery O2 Flow Rate FiO2 04/18/17 12:00 98.7 86 18 124/82 (96) 95 04/16/17 08:24 21 04/15/17 22:30 Nasal Cannula 3 Labs Laboratory Tests Test 04/18/17 06:21 White Blood Count 9.7 Red Blood Count 3.69 Hemoglobin 12.4 Hematocrit 36.0 Mean Corpuscular Volume 97.5 Mean Corpuscular Hemoglobin 33.5 Mean Corpuscular Hemoglobin Concent 34.4 Red Cell Distribution Width 13.0 Platelet Count 204 Mean Platelet Volume 9.1 Neutrophils (%) (Auto) 79.9 Lymphocytes (%) (Auto) 11.8 Monocytes (%) (Auto) 6.6 Eosinophils (%) (Auto) 1.4 Basophils (%) (Auto) 0.3 Neutrophils # (Auto) 7.8 Lymphocytes # (Auto) 1.2 Monocytes # (Auto) 0.6 Eosinophils # (Auto) 0.1 Basophils # (Auto) 0.0 CBC Comment DIFF FINAL Differential Comment Blood Urea Nitrogen 13 Creatinine 0.85 Random Glucose 110 Calcium Level 8.0 Sodium Level 137 Potassium Level 3.5 Chloride Level 102 Carbon Dioxide Level 27.1 Anion Gap 8 Estimat Glomerular Filtration Rate 99 Cardiovascular: Regular Lungs: Clear Abdomen: Other (continued distention; lap sites c/d/i; MILANA with SS drainage --- clearer today ) Extremities: No edema A/P Assessment and Plan 42 year old male POD3 lap appy; perforated -DC IVF -Continue IV antibiotics -Okay for clear liquids although I did just encourage sips at this point -Patient at high risk for post op ileus -OOB and mobilize as tolerated -Pain control -CM consult for MILANA drain care at home -Will advance diet once he feels more comfortable Chula Sloan Apr 18, 2017 13:42
[2017-04-18] MEDS: PANTOPRAZOLE SODIUM 40 MG VIAL IV PUSH SCH (15:52)
[2017-04-18 16:00] VITALS: BP 124/88; PULSE 95; RESP 17; TEMP 98.7; O2SAT 95
[2017-04-18 20:00] VITALS: BP 133/81; PULSE 88; RESP 17; TEMP 99.7; O2SAT 94
[2017-04-18] MEDS: ENOXAPARIN SODIUM 40 MG/0.4 ML SYRINGE SQ SCH (21:18)
[2017-04-19] VITALS: BP 121/76; PULSE 88; RESP 17; TEMP 98.4; O2SAT 95
[2017-04-19] MEDS: metroNIDAZOLE 500 MG TAB PO SCH ×2 (04:33→12:15)
[2017-04-19 08:00] VITALS: BP 133/83; PULSE 87; RESP 19; TEMP 97.5; O2SAT 95
[2017-04-19] MEDS: SODIUM CHLORIDE 0.9% FLUSH 5 ML FLUSH IVF SCH (08:25)
[2017-04-19] MEDS ORDERED: CIPROFLOXACIN 500 MG TAB PO SCH (09:00)
[2017-04-19 12:00] VITALS: BP 131/76; PULSE 96; RESP 19; TEMP 97.5; O2SAT 96
--- NOTE | 2017-04-19 14:03 | HHI.PR ---
cc: Matt Diaz MD Subjective Subjective Notes DAILY PROGRESS NOTE FOR SURGICAL ATTENDING, DR. IGOR JASMINE I'm ready to go home Objective Vitals/I&O Vital Signs Date Time Temp Pulse Resp B/P (MAP) Pulse Ox O2 Delivery O2 Flow Rate FiO2 04/19/17 12:00 97.5 96 19 131/76 (94) 96 04/16/17 08:24 21 04/15/17 22:30 Nasal Cannula 3 Labs Laboratory Tests Test 04/15/17 17:24 04/15/17 17:25 04/18/17 06:21 Urine Color YELLOW Urine Turbidity HAZY Urine pH 6.0 Urine Specific [place] 1.024 Urine Protein 100 mg/dL Urine Glucose (UA) TRACE mg/dL Urine Ketones TRACE mg/dL Urine Occult Blood SMALL Urine Nitrite NEG Urine Bilirubin NEG Urine Urobilinogen 2.0 MG/DL Urine Leukocyte Esterase NEG Urine RBC 2 /hpf Urine WBC 6 /hpf Urine Bacteria RARE /hpf Urine Hyaline Casts 71 /lpf Urine Mucus MANY /lpf Prothrombin Time 13.9 SEC Prothromb Time International Ratio 1.2 RATIO Activated Partial Thromboplast Time 29.4 SEC Blood Urea Nitrogen 15 MG/DL 13 MG/DL Creatinine 1.87 MG/DL 0.85 MG/DL Random Glucose 160 MG/DL 110 MG/DL Total Protein 8.4 GM/DL Albumin 3.8 GM/DL Calcium Level 9.4 MG/DL 8.0 MG/DL Alkaline Phosphatase 56 U/L Aspartate Amino Transf (AST/SGOT) 17 U/L Alanine Aminotransferase (ALT/SGPT) 32 U/L Total Bilirubin 1.8 MG/DL Sodium Level 130 MEQ/L 137 MEQ/L Potassium Level 4.0 MEQ/L 3.5 MEQ/L Chloride Level 95 MEQ/L 102 MEQ/L Carbon Dioxide Level 25.1 MEQ/L 27.1 MEQ/L White Blood Count 9.7 TH/MM3 Red Blood Count 3.69 MIL/MM3 Hemoglobin 12.4 GM/DL Hematocrit 36.0 % Mean Corpuscular Volume 97.5 FL Mean Corpuscular Hemoglobin 33.5 PG Mean Corpuscular Hemoglobin Concent 34.4 % Red Cell Distribution Width 13.0 % Platelet Count 204 TH/MM3 Mean Platelet Volume 9.1 FL Neutrophils (%) (Auto) 79.9 % Lymphocytes (%) (Auto) 11.8 % Monocytes (%) (Auto) 6.6 % Eosinophils (%) (Auto) 1.4 % Basophils (%) (Auto) 0.3 % Neutrophils # (Auto) 7.8 TH/MM3 Lymphocytes # (Auto) 1.2 TH/MM3 Monocytes # (Auto) 0.6 TH/MM3 Eosinophils # (Auto) 0.1 TH/MM3 Basophils # (Auto) 0.0 TH/MM3 CBC Comment DIFF FINAL Differential Comment Anion Gap 8 MEQ/L Estimat Glomerular Filtration Rate 99 ML/MIN Radiology Last Impressions Abdomen/Pelvis CT 04/15/17 [id number] Signed Impressions: Service Date/Time: Saturday, April 15, 2017 18:19 - CONCLUSION: 1. Ruptured appendicitis with small amount of free air and fluid. 2. Abnormal bowel gas pattern likely representing an ileus. 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 Diaz next week Attending Statement NOTE FOR SURGICAL ATTENDING, DR. IGOR JASMINE I attest that I had a [id number] encounter with the patient on the same day, and personally performed and documented my assessment and findings in the medical record. The following services were provided during this hospital visit: Chart data review, vital sign assessments/reviewing monitor data Review of consultations notes if present. Medication orders/review and/or management Ordering and/or reviewing lab tests Ordering and/or interpreting/reviewing x-rays and/or diagnostic studies Care of the patient and discussion of the patient with the care team Documentation time To help prompt me to consider important information that might be impacting today's encounter and assessment, information from prior notes written by myself or my colleagues may have been "brought forward/copy and pasted" into today's note. Igor Jasmine MD Apr 19, 2017 14:03
== END 2017-04-19 17:48 | disposition home or self-care (01) | DRG 853 ==
LOC: NEPC 16:45 → NEDA 19:03 → N07B 22:52
PROVIDERS: ADMIT Surgery Trauma Surgery; ATTEND Surgery Trauma Surgery
PROC: 0WQF4ZZ Repair Abdominal Wall, Percutaneous Endoscopic Approach (ICD-10-PCS; 2017-04-15)
PROC: 0DTJ4ZZ Resection of Appendix, Percutaneous Endoscopic Approach (ICD-10-PCS; principal; 2017-04-15 20:15)
DX: A41.9 Sepsis, unspecified organism (principal); K35.2 Acute appendicitis with generalized peritonitis; K42.0 Umbilical hernia with obstruction, without gangrene
CPT/HCPCS: 74177; 80048; 80053; 81001; 85025; 85610; 85730; 88304; 94150; 96361; 96374; 96375; C9113; J0131; J0744; J1650; J2270; J2405; J2543; J7030; J7120; Q9967